=== PATIENT | female | born 1945 | race Caucasian/White ===

== ENCOUNTER 2020-08-24 00:36 | Emergency (ER) | payer OTHER ==
[~2020-08-24] VITALS: Ht 157.5 cm; Wt 104.3 kg
[~2020-08-24 00:36] MED LIST: ADULT LOW DOSE81 MG PO; AMLODIPINE BESYL5 MG PO; ASPIR 8181 MG PO; CELEBREX 200 M200 M1 PO; CHROMIUM PICO400 MCG PO; CLONAZEPAM0.125 MG PO; CLONIDINE0.1 PO; COUMADIN 5 MG TA5 M1 OR; CYCLOSET0.8 MG PO; DAILY GARLIC O400 MG PO; FISH OIL 1,0001 EAC5 PO; FISH OIL 500 M1 EACH PO; FOLIC ACID 1 MG1 MG PO; HUMALOG100 UNIT/1 SQ; LANTUS SC; LEXAPRO PO; LISINOPRIL20 MG PO; LOVENOX SC; MEDROL4 MG PO; MIRALAX255 GM PO; MOM PO; MULTIVITAMINS PO; NORCO 5-325 TA1 EACH PO; PLAVIX 75 MG TA75 MG PO; PRILOSEC PO; VITAMIN E400 UNIT PO; VYTORIN 10-401 EACH PO; WELCHOL 625 MG625 MG PO; XANAX 0.5 MG0.5 M1 PO; [UNRECOGNIZED DRUG - OTHER] SUBQ
[2020-08-24 01:10] LABS: URINE BILIRUBIN NEGATIVE (Negative); URINE BLOOD NEGATIVE (Negative); URINE CLARITY CLEAR; URINE COLOR YELLOW; URINE GLUCOSE-RANDOM NEGATIVE (Negative); URINE KETONES NEGATIVE (Negative); URINE LEUKOCYTES-REFLEX NEGATIVE (Negative); URINE NITRITE-REFLEX NEGATIVE (Negative); URINE PROTEIN NEGATIVE (Negative); URINE SPECIFIC GRAVITY 1.015 (1.005-1.030); URINE UROBILINOGEN 0.2 E.U./dl (0.2-1.0)
[2020-08-24 02:04] LABS: ABSOLUTE BASOPHILS 0.1 thou/uL (0.0-0.2); ABSOLUTE EOSINOPHILS 0.2 thou/uL (0.0-0.7); ABSOLUTE LYMPHOCYTES 2.7 thou/uL (0.8-5.3); ABSOLUTE MONOCYTES 0.5 thou/uL (0.0-1.2); ABSOLUTE NEUTROPHILS 4.2 thou/uL (1.6-8.1); BASOPHILS 0.8 %; EOSINOPHILS 2.4 %; HEMATOCRIT 36.6 % (37.0-47.0); HEMOGLOBIN 12.3 gm/dL (12.0-15.0); LYMPHOCYTES 35.5 %; MCH 28.5 pg (26.0-34.0); MCHC 33.6 g/dL (28.0-37.0); MCV 84.8 fL (80.0-100.0); MONOCYTES 6.5 %; MPV 8.7 fl. (7.2-11.1); NUCLEATED RBCS 0 /100WBC; PLATELET COUNT* 211 thou/uL (150-400); POLYS 54.8 %; RBC 4.32 mil/uL (4.20-5.00); RDW-CV 18.6 % (10.5-14.5); WBC 7.6 thou/uL (4.0-11.0)
[2020-08-24 02:08] LABS: CALCIUM 9.3 mg/dL (8.5-10.1); CREATININE 1.1 mg/dL (0.6-1.3); POTASSIUM 3.9 mmol/L (3.5-5.1)
[2020-08-24 02:10] LABS: PROTIME 10.8 Seconds (9.20-11.50)
[2020-08-24 02:19] LABS: ALBUMIN 3.5 g/dL (3.4-5.0); TOTAL BILIRUBIN 0.3 mg/dL (<0.1-1.0); TOTAL PROTEIN 8.1 g/dL (6.4-8.2)
[2020-08-24] MEDS ORDERED: KEFLEX500 M1 PO (04:51)
[2020-08-24 05:06] VITALS: BP 146/75
--- NOTE | 2020-08-24 09:06 | EKG ---
[place] [address] ELECTROCARDIOGRAM REPORT Name: JOHANNCODY ARNIE Room: [facility]#: [id number] Admission: 08/24/20 Attend Phys: Discharge: 08/24/20 Date of : 43 Date of Service: 08/24/20 0144 Report #: [id number] THIS REPORT FOR: //name// [facility] ED Test Date: 2020-08-24 Test Time: 01:44:14 Pat Name: CODY WILLS Department: Room: Gender: F [employer]: : 1945 Requested By: Aixa Brownlee Order Number: [id number] MD: Puneet Wu Measurements Intervals [place] Rate: 72 P: 52 MD: 145 QRS: 21 QRSD: 101 T: 92 QT: 416 QTc: 456 Interpretive Statements Sinus rhythm Ventricular trigeminy Abnormal R-wave progression, late transition Minimal ST depression, anterolateral leads Baseline wander in lead(s) II,III,aVF Compared to ECG 04/18/2016 19:26:23 ST (T wave) deviation now present T-wave abnormality no longer present Electronically Signed On 08-24-2020 9:06:10 BUSINESS ARCHITECT by Puneet Wu [email or web address] <ELECTRONICALLY SIGNED> By: Puneet Wu MD, FAC 08/24/20905 3 3 Puneet Wu MD, [facility] /EPI
== END 2020-08-24 05:06 | disposition home or self-care (01) ==
LOC: M.ERS 00:36
PROVIDERS: Emergency Medicine
DX: R60.0 Localized edema (principal); E11.9 Type 2 diabetes mellitus without complications; Z88.8 Allergy status to other drugs, medicaments and biological substances; Z79.899 Other long term (current) drug therapy; Z79.4 Long term (current) use of insulin

== ENCOUNTER 2021-03-20 22:06 | Inpatient (IN) | payer OTHER ==
[~2021-03-20] VITALS: Ht 152.4 cm; Wt 118.9 kg
--- NOTE | ~2021-03-20 | CON ---
[facility] [address] [place] [address] CONSULTATION Name: CODY WILLS Room: [address] [place].R.#: [id number] Admission: 03/21/21 Attend Phys: Dionte Pruett Discharge: Date of : 43 Report #: [id number] THIS REPORT FOR: cc: Kristi Aviles Maggie M. DO Khosla,Foreign Lomax MD ~ DATE OF CONSULTATION: 03/21/2021 HISTORY OF PRESENT ILLNESS: This is a 75-year-old female patient who was evaluated by me for stroke. I talked to the emergency room physician last night. I talked to the nurses earlier today. They tell him that the patient refused the Plavix and other medication. When I saw the patient, she denies that. She did have weakness on the right side, which appeared to have improved. However, it is still fluctuating. She did undergo an MRI, which confirmed that she had a stroke. She underwent a carotid Doppler, which was unremarkable. MRI demonstrated stenosis, but no abrupt cutoff to indicate embolus. All those studies were reviewed. The patient is stable. REVIEW OF SYSTEMS: A 14-point review of system was carried out. She does have a history of hypertension. She takes clonidine. She says she is a diabetic. SHE IS ALLERGIC TO CONTRAST. She does have some history of anxiety. She had femoral stent. This was a relevant 14-point review of system. PAST MEDICAL HISTORY: Positive for CVA in the past. FAMILY HISTORY: Unremarkable. SOCIAL HISTORY: She has smoked in the past. PHYSICAL EXAMINATION: She was alert and responsive. Her memory was somewhat poor. Cranial nerve examination was difficult to carry out especially visual field, but I do not see any hemianopsia, which is definite. She moves both sides. She is weak on the right side as compared to the left side. She says sensation is present, but it feels different on the right side. Her last blood pressure was 177/56. LABORATORY DATA: White count was 26.9. She has an abnormal lipid profile in the past. IMPRESSION: 1. Cerebrovascular accident. 2. Intracranial stenosis. RECOMMENDATION: 1. I discussed with the patient that [place] [address] CONSULTATION Name: JOHANNCODY Jones Room: [address]#: [id number] Admission: 03/21/21 Attend Phys: Dionte Pruett Discharge: Date of : 43 Report #: [id number] aspirin and Plavix. She is agreeable with that. She understands the potential side effect of it. I talked to the night nurse and I told her that she should make sure that the patient did not receive Plavix in the past and if she did not, then she can have 600 mg of Plavix. She is going to check to make sure she did not receive Plavix and then give her Plavix. 2. I will suggest keeping her blood pressure somewhat high because of intracranial stenosis. 3. She may need some more aggressive treatment of her lipid profile depending upon what lipid profile shows tomorrow. I discussed with her. I discussed the importance of controlling her vascular risk factors and the fact that these deficits can fluctuate. I agree she was not a candidate for tPA. There is no abrupt cutoff to look for any embolization that is basically a stenosis and more importantly, the patient has pretty mild deficits when I saw this patient, but this patient is very predisposed to have a large stroke and need to be monitored. More than 50 minutes of time was spent taking care of this patient today and majority was spent counseling and coordinating. By: 03 [id number] Leonard MD /nt
[~2021-03-20 22:06] MED LIST changes: +KEFLEX500 M1 PO
[2021-03-20 22:16] VITALS: BP 135/53
[2021-03-20] MEDS ORDERED: PRINIVIL20 M1 PO (22:33)
[2021-03-20] MEDS ORDERED: CLONIDINE HCL0.1 MG PO (22:33)
[2021-03-20] MEDS ORDERED: XANAX 0.5 MG0.5 MG PO (22:34)
[2021-03-20] MEDS ORDERED: BUMETANIDE0.5 MG PO (22:34)
[2021-03-20] MEDS ORDERED: LANTUS SUBQ (22:35)
[2021-03-20] MEDS ORDERED: NOVOLOG100 UNIT/M SUBQ (22:35)
[2021-03-20] MEDS ORDERED: LIDODERM1 EACH TOP (22:36)
[2021-03-20 22:47] LABS: ABSOLUTE BASOPHILS 0.1 thou/uL (0.0-0.2); ABSOLUTE EOSINOPHILS 0.1 thou/uL (0.0-0.7); ABSOLUTE LYMPHOCYTES 2.1 thou/uL (0.8-5.3); ABSOLUTE MONOCYTES 0.4 thou/uL (0.0-1.2); ABSOLUTE NEUTROPHILS 4.2 thou/uL (1.6-8.1); BASOPHILS 0.8 %; EOSINOPHILS 1.9 %; HEMATOCRIT 35.8 % (37.0-47.0); HEMOGLOBIN 12.3 gm/dL (12.0-15.0); LYMPHOCYTES 30.3 %; MCH 31.2 pg (26.0-34.0); MCHC 34.5 g/dL (28.0-37.0); MCV 90.3 fL (80.0-100.0); MONOCYTES 6.3 %; MPV 8.1 fl. (7.2-11.1); NUCLEATED RBCS 0 /100WBC; PLATELET COUNT* 229 thou/uL (150-400); POLYS 60.7 %; RBC 3.96 mil/uL (4.20-5.00); RDW-CV 13.7 % (10.5-14.5); WBC 6.9 thou/uL (4.0-11.0)
[2021-03-20 22:49] LABS: CALCIUM 9.6 mg/dL (8.5-10.1); CREATININE 1.3 mg/dL (0.6-1.3); POTASSIUM 4.4 mmol/L (3.5-5.1)
[2021-03-20 23:00] LABS: ALBUMIN 3.8 g/dL (3.4-5.0); MAGNESIUM 2.3 mg/dL (1.8-2.4); TOTAL BILIRUBIN 0.3 mg/dL (<0.1-1.0); TOTAL PROTEIN 8.2 g/dL (6.4-8.2)
[2021-03-20 23:12] LABS: URINE BILIRUBIN NEGATIVE (Negative); URINE BLOOD NEGATIVE (Negative); URINE CLARITY CLEAR; URINE COLOR YELLOW; URINE GLUCOSE-RANDOM NEGATIVE (Negative); URINE KETONES NEGATIVE (Negative); URINE LEUKOCYTES-REFLEX NEGATIVE (Negative); URINE NITRITE-REFLEX NEGATIVE (Negative); URINE PROTEIN NEGATIVE (Negative); URINE UROBILINOGEN 0.2 E.U./dl (0.2-1.0)
[2021-03-20 23:19] LABS: PROTIME 10.9 Seconds (9.20-11.50)
[2021-03-21 05:48] VITALS: BP 164/50
[2021-03-21 09:45] VITALS: BP 153/49
--- NOTE | 2021-03-21 09:47 | EKG ---
[place] [address] ELECTROCARDIOGRAM REPORT Name: CODY WILLS Room: [place] [address] ADM IN [facility]#: [id number] Admission: 03/21/21 Attend Phys: Mirza Ramirez Discharge: Date of : 43 Date of Service: 03/20/212214 Report #: [id number] THIS REPORT FOR: //name// [facility] ED Test Date: 2021-03-20 Test Time: 22:15:17 Pat Name: CODY WILLS Department: Room: [facility] Gender: F Service Desk Team Lead: [place] : 1945 Requested By: Aixa Brownlee Order Number: [id number] MD: Alfredo Rain Measurements Intervals [place] Rate: 69 P: 67 CA: 147 QRS: 19 QRSD: 101 T: 184 QT: 396 QTc: 425 Interpretive Statements Sinus rhythm Atrial premature complex Repol abnrm suggests ischemia, lateral leads Baseline wander in lead(s) II,III,aVR,aVL,aVF,V3 Compared to ECG 08/24/2020 01:44:14 Atrial premature complex(es) now present Ventricular premature complex(es) no longer present Electronically Signed On 03-21-2021 9:46:39 CDT by Alfredo Rain [email or web address] <ELECTRONICALLY SIGNED> By: Alfredo Rain MD, [facility] 03/21/2146 14 14 Alfredo Rain MD, [facility] /EPI
[2021-03-21 13:45] VITALS: BP 198/66
[2021-03-21 16:51] VITALS: BP 177/56
[2021-03-21 20:00] VITALS: BP 174/61
[2021-03-22 00:45] VITALS: BP 167/55
[2021-03-22 04:30] VITALS: BP 201/84
[2021-03-22 04:42] LABS: ALBUMIN 3.5 g/dL (3.4-5.0); ALKALINE PHOSPHATASE 144 U/L (46-116); ANION GAP 9 mmol/L (7-16); BUN 31 mg/dL (7-18); CALCIUM 9.2 mg/dL (8.5-10.1); CHLORIDE 104 mmol/L (98-107); CHOLESTEROL 268 mg/dL (<200); CO2 27 mmol/L (21-32); CREATININE 1.2 mg/dL (0.6-1.3); GLUCOSE 243 mg/dL (70-99); HDL CHOLESTEROL 38 mg/dL (>40); LDL CHOLESTEROL 156 mg/dL (<100); POTASSIUM 4.4 mmol/L (3.5-5.1); SGOT 16 U/L (15-37); SGPT 29 U/L (30-65); SODIUM 140 mmol/L (136-145); TC:HDL 7.1 Ratio (Not establshd); TOTAL BILIRUBIN 0.6 mg/dL (<0.1-1.0); TOTAL PROTEIN 7.6 g/dL (6.4-8.2); TRIGLYCERIDE 370 mg/dL (<150); VLDL 74 mg/dL (<40)
[2021-03-22 04:44] LABS: SERUM ASSESSMENT CLEAR
[2021-03-22 05:15] VITALS: BP 209/76
[2021-03-22 06:47] LABS: ABSOLUTE EOSINOPHILS 0.2 thou/uL (0.0-0.7); ABSOLUTE LYMPHOCYTES 2.6 thou/uL (0.8-5.3); ABSOLUTE MONOCYTES 0.4 thou/uL (0.0-1.2); ABSOLUTE NEUTROPHILS 4.1 thou/uL (1.6-8.1); BASOPHILS 0.6 %; EOSINOPHILS 2.3 %; HEMATOCRIT 36.1 % (37.0-47.0); HEMOGLOBIN 12.1 gm/dL (12.0-15.0); LYMPHOCYTES 35.3 %; MCH 30.8 pg (26.0-34.0); MCHC 33.7 g/dL (28.0-37.0); MCV 91.6 fL (80.0-100.0); MONOCYTES 6.2 %; MPV 8.3 fl. (7.2-11.1); NUCLEATED RBCS 0 /100WBC; PLATELET COUNT* 210 thou/uL (150-400); POLYS 55.6 %; RBC 3.94 mil/uL (4.20-5.00); RDW-CV 13.5 % (10.5-14.5); WBC 7.3 thou/uL (4.0-11.0)
[2021-03-22 12:00] VITALS: BP 160/43
[2021-03-22 16:16] VITALS: BP 156/51
[2021-03-22 20:00] VITALS: BP 160/65
[2021-03-23 00:25] VITALS: BP 153/57
[2021-03-23 04:35] VITALS: BP 141/38
[2021-03-23 07:09] LABS: GLYCOHEMOGLOBIN (HGB A1C) 8.5 % (4.8-5.6)
[2021-03-23 08:10] VITALS: BP 139/42
[2021-03-23 08:55] LABS: ABSOLUTE BASOPHILS 0.1 thou/uL (0.0-0.2); ABSOLUTE EOSINOPHILS 0.2 thou/uL (0.0-0.7); ABSOLUTE LYMPHOCYTES 2.5 thou/uL (0.8-5.3); ABSOLUTE MONOCYTES 0.4 thou/uL (0.0-1.2); ABSOLUTE NEUTROPHILS 3.3 thou/uL (1.6-8.1); BASOPHILS 0.8 %; HEMATOCRIT 33.5 % (37.0-47.0); HEMOGLOBIN 11.8 gm/dL (12.0-15.0); LYMPHOCYTES 38.9 %; MCH 31.7 pg (26.0-34.0); MCHC 35.1 g/dL (28.0-37.0); MCV 90.4 fL (80.0-100.0); MONOCYTES 6.3 %; NUCLEATED RBCS 0 /100WBC; PLATELET COUNT* 192 thou/uL (150-400); RBC 3.71 mil/uL (4.20-5.00); RDW-CV 13.7 % (10.5-14.5); WBC 6.4 thou/uL (4.0-11.0)
[2021-03-23 09:07] LABS: AMYLASE 34 U/L (25-115); LIPASE 100 U/L (73-393)
[2021-03-23 10:28] LABS: ALBUMIN 3.3 g/dL (3.4-5.0); CALCIUM 9.2 mg/dL (8.5-10.1); CREATININE 1.1 mg/dL (0.6-1.3); POTASSIUM 4.1 mmol/L (3.5-5.1); TOTAL BILIRUBIN 0.5 mg/dL (<0.1-1.0); TOTAL PROTEIN 7.3 g/dL (6.4-8.2)
[2021-03-23 12:00] VITALS: BP 152/83
[2021-03-23 20:00] VITALS: BP 155/59
[2021-03-24] VITALS: BP 101/35
[2021-03-24 04:00] VITALS: BP 141/36
[2021-03-24 07:25] VITALS: BP 105/42
[2021-03-24 12:00] VITALS: BP 124/41
[2021-03-24 16:00] VITALS: BP 162/60
[2021-03-25] VITALS: BP 112/85
[2021-03-25 04:00] VITALS: BP 150/37
[2021-03-25 08:00] VITALS: BP 188/66
[2021-03-25 12:01] VITALS: BP 173/56
[2021-03-25 17:36] VITALS: BP 185/64
[2021-03-25 20:00] VITALS: BP 178/64
[2021-03-26] VITALS: BP 183/48
[2021-03-26 04:21] VITALS: BP 180/53
[2021-03-26 04:37] LABS: HEMOGLOBIN 11.9 gm/dL (12.0-15.0); MCH 31.2 pg (26.0-34.0); MCHC 33.9 g/dL (28.0-37.0); MPV 8.5 fl. (7.2-11.1); RBC 3.81 mil/uL (4.20-5.00); RDW-CV 13.8 % (10.5-14.5); WBC 8.3 thou/uL (4.0-11.0)
[2021-03-26 05:13] LABS: ALBUMIN 3.3 g/dL (3.4-5.0); CREATININE 1.1 mg/dL (0.6-1.3); MAGNESIUM 2.3 mg/dL (1.8-2.4); POTASSIUM 3.4 mmol/L (3.5-5.1); TOTAL BILIRUBIN 0.5 mg/dL (<0.1-1.0); TOTAL PROTEIN 7.4 g/dL (6.4-8.2)
[2021-03-26 09:00] VITALS: BP 183/53
[2021-03-26 12:00] VITALS: BP 160/68
[2021-03-26 15:44] VITALS: BP 177/51
[2021-03-26 20:00] VITALS: BP 180/68
[2021-03-27] VITALS: BP 149/65; BP 150/65
[2021-03-27 04:00] VITALS: BP 175/62
[2021-03-27 12:00] VITALS: BP 185/66
[2021-03-27 16:07] VITALS: BP 160/64
[2021-03-27 20:00] VITALS: BP 187/86
[2021-03-28] VITALS: BP 173/68
[2021-03-28 04:00] VITALS: BP 169/61
[2021-03-28 08:00] VITALS: BP 178/63
[2021-03-28 12:00] VITALS: BP 183/50
[2021-03-28] MEDS ORDERED: GLUCOTROL5 MG PO (12:05)
[2021-03-28] MEDS ORDERED: PIOGLITAZONE15 MG PO (12:05)
[2021-03-28] MEDS ORDERED: BAYER CHEWABLE81 MG PO (12:05)
[2021-03-28] MEDS ORDERED: DOXYCYCLINE 10100 M2 PO (12:05)
[2021-03-28] MEDS ORDERED: NORVASC5 MG PO (12:05)
[2021-03-28] MEDS ORDERED: WELCHOL 625 MG625 M1 PO (12:05)
[2021-03-28] MEDS ORDERED: HUMALOG100 UNIT/1 SUBQ (12:05)
[2021-03-28] MEDS ORDERED: LIPITOR 40 MG T40 M1 PO (12:05)
[2021-03-28] MEDS ORDERED: QUINU5 PD PO (12:05)
[2021-03-28] MEDS ORDERED: GEMFIBROZIL 60600 M1 PO (12:05)
[2021-03-28] MEDS ORDERED: LANTUS SUBQ ×2 (12:05)
[2021-03-28] MEDS ORDERED: CLOPIDOGREL75 MG PO (12:05)
== END 2021-03-28 15:06 | DRG 64 ==
LOC: M.ERS 22:06 → M.TBA-ER 03-21 01:48 → M.2W 03-21 01:48
PROVIDERS: Emergency Medicine; Internal Medicine; ADMIT Internal Medicine; ATTEND Internal Medicine
PROC: 5A09557 Assistance with Respiratory Ventilation, Greater than 96 Consecutive Hours, Continuous Positive Airway Pressure (ICD-10-PCS; principal; 2021-03-21)
DX: I63.81 Other cerebral infarction due to occlusion or stenosis of small artery (principal); G93.41 Metabolic encephalopathy; G81.91 Hemiplegia, unspecified affecting right dominant side; Z68.43 Body mass index [BMI] 50.0-59.9, adult; L03.115 Cellulitis of right lower limb; Z20.822 Contact with and (suspected) exposure to COVID-19; I10 Essential (primary) hypertension; E11.51 Type 2 diabetes mellitus with diabetic peripheral angiopathy without gangrene; E66.01 Morbid (severe) obesity due to excess calories; E87.70 Fluid overload, unspecified; E78.1 Pure hyperglyceridemia; R47.1 Dysarthria and anarthria; D64.9 Anemia, unspecified; R53.81 Other malaise; R29.810 Facial weakness; E78.5 Hyperlipidemia, unspecified; G31.84 Mild cognitive impairment of uncertain or unknown etiology; R47.01 Aphasia; Z86.73 Personal history of transient ischemic attack (TIA), and cerebral infarction without residual deficits; Z95.820 Peripheral vascular angioplasty status with implants and grafts; Z79.899 Other long term (current) drug therapy; Z79.4 Long term (current) use of insulin; Z88.8 Allergy status to other drugs, medicaments and biological substances; Z91.041 Radiographic dye allergy status; Z87.891 Personal history of nicotine dependence; Z83.3 Family history of diabetes mellitus

== ENCOUNTER 2021-03-28 14:47 | Inpatient (IN) | payer OTHER ==
[~2021-03-28] VITALS: Ht 157.5 cm; Wt 112.0 kg
[~2021-03-28 14:47] MED LIST changes: +BAYER CHEWABLE81 MG PO; +BUMETANIDE0.5 MG PO; +CLONIDINE HCL0.1 MG PO; +CLOPIDOGREL75 MG PO; +DOXYCYCLINE 10100 M2 PO; +GEMFIBROZIL 60600 M1 PO; +GLUCOTROL5 MG PO; +HUMALOG100 UNIT/1 SUBQ; +LANTUS SUBQ; +LIDODERM1 EACH TOP; +LIPITOR 40 MG T40 M1 PO; +NORVASC5 MG PO; +NOVOLOG100 UNIT/M SUBQ; +PIOGLITAZONE15 MG PO; +PRINIVIL20 M1 PO; +QUINU5 PD PO; +WELCHOL 625 MG625 M1 PO; +XANAX 0.5 MG0.5 MG PO
[2021-03-28 19:00] VITALS: BP 198/73
[2021-03-29 04:33] LABS: HEMATOCRIT 33.9 % (37.0-47.0); HEMOGLOBIN 11.7 gm/dL (12.0-15.0); MCH 31.5 pg (26.0-34.0); MCHC 34.5 g/dL (28.0-37.0); MCV 91.4 fL (80.0-100.0); MPV 8.3 fl. (7.2-11.1); RBC 3.72 mil/uL (4.20-5.00); RDW-CV 13.7 % (10.5-14.5); WBC 7.1 thou/uL (4.0-11.0)
[2021-03-29 04:49] LABS: CALCIUM 9.3 mg/dL (8.5-10.1); POTASSIUM 3.8 mmol/L (3.5-5.1)
[2021-03-29 06:22] VITALS: BP 167/52
[2021-03-29 08:24] VITALS: BP 167/64
[2021-03-29 19:40] VITALS: BP 141/54
[2021-03-30 08:00] VITALS: BP 168/74
[2021-03-30 20:00] VITALS: BP 172/64
[2021-03-31 07:39] VITALS: BP 156/54
[2021-03-31 19:00] VITALS: BP 136/55
[2021-04-01 07:45] VITALS: BP 164/70
[2021-04-01 20:00] VITALS: BP 176/59
[2021-04-02 07:26] VITALS: BP 162/52
[2021-04-02 19:00] VITALS: BP 114/60
[2021-04-03 09:11] VITALS: BP 144/61
[2021-04-03 19:00] VITALS: BP 166/52
[2021-04-04 05:19] LABS: HEMATOCRIT 31.4 % (37.0-47.0); HEMOGLOBIN 11.1 gm/dL (12.0-15.0); MCH 31.8 pg (26.0-34.0); MCHC 35.2 g/dL (28.0-37.0); MCV 90.3 fL (80.0-100.0); MPV 8.4 fl. (7.2-11.1); RBC 3.48 mil/uL (4.20-5.00); RDW-CV 13.8 % (10.5-14.5); WBC 6.5 thou/uL (4.0-11.0)
[2021-04-04 05:32] LABS: CALCIUM 9.3 mg/dL (8.5-10.1); CREATININE 0.9 mg/dL (0.6-1.3); POTASSIUM 3.9 mmol/L (3.5-5.1)
[2021-04-04 07:30] VITALS: BP 159/60
[2021-04-04 19:00] VITALS: BP 165/59
[2021-04-05 07:30] VITALS: BP 165/54
[2021-04-05 20:11] VITALS: BP 175/51
[2021-04-06 07:20] VITALS: BP 153/59
[2021-04-06 19:45] VITALS: BP 157/45
[2021-04-07 08:25] VITALS: BP 181/75
[2021-04-07 19:15] VITALS: BP 141/37
[2021-04-08 08:21] VITALS: BP 140/41
[2021-04-08 20:00] VITALS: BP 142/98
[2021-04-09 07:30] VITALS: BP 156/44
[2021-04-09 19:00] VITALS: BP 170/55
[2021-04-10 07:44] VITALS: BP 164/70
[2021-04-10 19:00] VITALS: BP 159/43
[2021-04-11 05:26] LABS: HEMATOCRIT 27.8 % (37.0-47.0); HEMOGLOBIN 9.7 gm/dL (12.0-15.0); MCH 31.8 pg (26.0-34.0); MCHC 34.8 g/dL (28.0-37.0); MCV 91.3 fL (80.0-100.0); MPV 8.7 fl. (7.2-11.1); RBC 3.04 mil/uL (4.20-5.00); RDW-CV 13.5 % (10.5-14.5); WBC 5.5 thou/uL (4.0-11.0)
[2021-04-11 07:47] VITALS: BP 156/55
[2021-04-11 19:40] VITALS: BP 159/52
[2021-04-12 09:25] VITALS: BP 166/57
[2021-04-12 19:50] VITALS: BP 156/51
[2021-04-13 08:00] VITALS: BP 147/42
[2021-04-13 20:00] VITALS: BP 155/57
[2021-04-14 07:40] VITALS: BP 162/44
[2021-04-14 20:00] VITALS: BP 163/54
[2021-04-15 07:46] VITALS: BP 147/60
[2021-04-15 19:36] VITALS: BP 154/43
[2021-04-16 07:30] VITALS: BP 160/57
[2021-04-16 19:23] VITALS: BP 142/46
[2021-04-17 07:22] VITALS: BP 176/55
[2021-04-17 19:25] VITALS: BP 153/46
[2021-04-18 05:28] LABS: HEMATOCRIT 27.7 % (37.0-47.0); HEMOGLOBIN 9.7 gm/dL (12.0-15.0); MCH 31.7 pg (26.0-34.0); MCHC 34.9 g/dL (28.0-37.0); MCV 90.8 fL (80.0-100.0); MPV 8.7 fl. (7.2-11.1); RBC 3.05 mil/uL (4.20-5.00); RDW-CV 13.7 % (10.5-14.5); WBC 5.8 thou/uL (4.0-11.0)
[2021-04-18 05:53] LABS: CALCIUM 9.2 mg/dL (8.5-10.1); CREATININE 0.9 mg/dL (0.6-1.3); POTASSIUM 4.3 mmol/L (3.5-5.1)
[2021-04-18 08:00] VITALS: BP 146/78
[2021-04-18 20:00] VITALS: BP 116/76
[2021-04-19 08:00] VITALS: BP 148/66
[2021-04-19 19:43] VITALS: BP 144/53
[2021-04-20 07:40] VITALS: BP 105/51
[2021-04-20 22:00] VITALS: BP 151/47
[2021-04-21 08:07] VITALS: BP 160/51
[2021-04-21 09:49] VITALS: BP 160/51
[2021-04-21 20:00] VITALS: BP 148/36; BP 149/49
[2021-04-22 09:13] VITALS: BP 158/53
[2021-04-22 19:57] VITALS: BP 154/51
[2021-04-23 07:30] VITALS: BP 163/50
[2021-04-23 19:00] VITALS: BP 101/41
[2021-04-24 08:00] VITALS: BP 175/52
[2021-04-24 09:54] LABS: URINE BILIRUBIN NEGATIVE (Negative); URINE BLOOD 3+ (Negative); URINE CLARITY SL CLOUDY; URINE COLOR YELLOW; URINE GLUCOSE-RANDOM NEGATIVE (Negative); URINE KETONES NEGATIVE (Negative); URINE NITRITE-REFLEX NEGATIVE (Negative); URINE PROTEIN 3+ (Negative); URINE SPECIFIC GRAVITY >= 1.030 (1.005-1.030); URINE UROBILINOGEN 0.2 E.U./dl (0.2-1.0)
[2021-04-24 09:57] LABS: URINE LEUKOCYTES-REFLEX 3+ (Negative)
[2021-04-24 10:02] LABS: CASTS None Seen /LPF (None Seen); CRYSTALS None Seen /LPF (None Seen); MUCUS 0-3 Light strn/LPF (None Seen); SQUAMOUS 4-10 Moderate /LPF (0-3); URINE RBC 3-10 Few /HPF (0-2)
[2021-04-24 19:00] VITALS: BP 115/46
[2021-04-25 07:13] VITALS: BP 163/58
[2021-04-25 07:30] LABS: HEMATOCRIT 27.3 % (37.0-47.0); HEMOGLOBIN 9.7 gm/dL (12.0-15.0); MCH 32.2 pg (26.0-34.0); MCHC 35.4 g/dL (28.0-37.0); MCV 91.1 fL (80.0-100.0); MPV 8.3 fl. (7.2-11.1); RDW-CV 13.3 % (10.5-14.5); WBC 6.2 thou/uL (4.0-11.0)
[2021-04-25 07:41] LABS: ANION GAP < 0 mmol/L (7-16); BUN 20 mg/dL (7-18); CALCIUM 9.2 mg/dL (8.5-10.1); CHLORIDE 107 mmol/L (98-107); CO2 27 mmol/L (21-32); GLUCOSE 83 mg/dL (70-99); SODIUM 129 mmol/L (136-145)
[2021-04-25 11:36] LABS: CALCIUM 9.4 mg/dL (8.5-10.1); CREATININE 1.1 mg/dL (0.6-1.3); POTASSIUM 4.3 mmol/L (3.5-5.1)
[2021-04-25 19:30] VITALS: BP 137/37
[2021-04-26 09:33] VITALS: BP 142/48
[2021-04-26 19:45] VITALS: BP 137/50
[2021-04-27 07:57] VITALS: BP 174/63
[2021-04-27 19:35] VITALS: BP 141/45
[2021-04-28 08:00] VITALS: BP 149/41
[2021-04-28 19:00] VITALS: BP 135/45
[2021-04-29 07:30] VITALS: BP 159/70
[2021-04-29 11:03] LABS: ABSOLUTE EOSINOPHILS 0.1 thou/uL (0.0-0.7); ABSOLUTE LYMPHOCYTES 1.3 thou/uL (0.8-5.3); ABSOLUTE MONOCYTES 0.3 thou/uL (0.0-1.2); ABSOLUTE NEUTROPHILS 2.7 thou/uL (1.6-8.1); HEMATOCRIT 28.8 % (37.0-47.0); HEMOGLOBIN 10.1 gm/dL (12.0-15.0); MCHC 34.9 g/dL (28.0-37.0); WBC 4.4 thou/uL (4.0-11.0)
[2021-04-29 11:05] LABS: BASOPHILS 0.7 %; LYMPHOCYTES 29.1 %; MCV 91.8 fL (80.0-100.0); MONOCYTES 6.2 %; MPV 8.5 fl. (7.2-11.1); NUCLEATED RBCS 0 /100WBC; PLATELET COUNT* 223 thou/uL (150-400); RBC 3.14 mil/uL (4.20-5.00); RDW-CV 13.8 % (10.5-14.5)
[2021-04-29 20:10] VITALS: BP 168/51
[2021-04-30 07:30] VITALS: BP 162/59
[2021-04-30 19:00] VITALS: BP 156/51
[2021-05-01 07:40] VITALS: BP 132/52
[2021-05-01 19:00] VITALS: BP 145/50
[2021-05-02 04:39] LABS: CALCIUM 8.7 mg/dL (8.5-10.1); POTASSIUM 4.1 mmol/L (3.5-5.1)
[2021-05-02 04:43] LABS: HEMATOCRIT 26.7 % (37.0-47.0); HEMOGLOBIN 9.3 gm/dL (12.0-15.0); MCH 31.9 pg (26.0-34.0); MCHC 34.8 g/dL (28.0-37.0); MCV 91.7 fL (80.0-100.0); MPV 8.3 fl. (7.2-11.1); RBC 2.91 mil/uL (4.20-5.00); RDW-CV 13.7 % (10.5-14.5); WBC 5.4 thou/uL (4.0-11.0)
[2021-05-02 07:40] VITALS: BP 148/49
[2021-05-02 20:00] VITALS: BP 150/46
[2021-05-03 09:08] VITALS: BP 143/60
[2021-05-03 20:00] VITALS: BP 125/53
[2021-05-04 07:54] VITALS: BP 145/53
[2021-05-04 12:43] LABS: URINE BILIRUBIN NEGATIVE (Negative); URINE BLOOD NEGATIVE (Negative); URINE CLARITY CLEAR; URINE COLOR YELLOW; URINE GLUCOSE-RANDOM NEGATIVE (Negative); URINE KETONES NEGATIVE (Negative); URINE LEUKOCYTES-REFLEX NEGATIVE (Negative); URINE NITRITE-REFLEX NEGATIVE (Negative); URINE PROTEIN NEGATIVE (Negative); URINE SPECIFIC GRAVITY 1.025 (1.005-1.030); URINE UROBILINOGEN 0.2 E.U./dl (0.2-1.0)
[2021-05-04 19:57] VITALS: BP 141/42
[2021-05-05 07:50] VITALS: BP 147/53
[2021-05-05 19:30] VITALS: BP 147/47
[2021-05-06 07:00] VITALS: BP 129/41
[2021-05-06 19:30] VITALS: BP 149/39
[2021-05-07 07:30] VITALS: BP 134/44
[2021-05-07 19:00] VITALS: BP 158/45
[2021-05-08 07:34] VITALS: BP 160/51
[2021-05-08 13:04] LABS: URINE BILIRUBIN NEGATIVE (Negative); URINE BLOOD 3+ (Negative); URINE CLARITY CLEAR; URINE COLOR YELLOW; URINE GLUCOSE-RANDOM NEGATIVE (Negative); URINE KETONES NEGATIVE (Negative); URINE PROTEIN 2+ (Negative); URINE SPECIFIC GRAVITY >= 1.030 (1.005-1.030); URINE UROBILINOGEN 0.2 E.U./dl (0.2-1.0)
[2021-05-08 13:05] LABS: URINE LEUKOCYTES-REFLEX 2+ (Negative); URINE NITRITE-REFLEX POSITIVE (Negative)
[2021-05-08 13:13] LABS: URINE WBC-REFLEX >25 Many /HPF (0-5)
[2021-05-08 13:14] LABS: CASTS None Seen /LPF (None Seen); SQUAMOUS NONE SEEN /LPF (0-3)
[2021-05-08 13:15] LABS: CRYSTALS None Seen /LPF (None Seen)
[2021-05-08 19:00] VITALS: BP 130/67
[2021-05-09 05:06] LABS: HEMATOCRIT 26.8 % (37.0-47.0); HEMOGLOBIN 9.2 gm/dL (12.0-15.0); MCH 31.6 pg (26.0-34.0); MCHC 34.3 g/dL (28.0-37.0); MCV 92.4 fL (80.0-100.0); MPV 8.4 fl. (7.2-11.1); RBC 2.9 mil/uL (4.20-5.00); RDW-CV 13.7 % (10.5-14.5); WBC 7.6 thou/uL (4.0-11.0)
[2021-05-09 05:21] LABS: CALCIUM 8.9 mg/dL (8.5-10.1); POTASSIUM 3.7 mmol/L (3.5-5.1)
[2021-05-09 07:34] VITALS: BP 150/47
[2021-05-09 20:00] VITALS: BP 138/91
[2021-05-10 07:00] VITALS: BP 145/54
[2021-05-10 08:00] VITALS: BP 145/54
[2021-05-10 19:47] VITALS: BP 145/40
[2021-05-11 08:02] VITALS: BP 147/78
[2021-05-11 14:38] LABS: HEMATOCRIT 28.3 % (37.0-47.0); HEMOGLOBIN 9.7 gm/dL (12.0-15.0); MCH 31.9 pg (26.0-34.0); MCHC 34.4 g/dL (28.0-37.0); MCV 92.7 fL (80.0-100.0); MPV 8.6 fl. (7.2-11.1); RBC 3.06 mil/uL (4.20-5.00); WBC 5.1 thou/uL (4.0-11.0)
[2021-05-11 16:00] VITALS: BP 144/79
[2021-05-11 20:42] VITALS: BP 134/42
[2021-05-12 08:00] VITALS: BP 157/58
[2021-05-12 19:00] VITALS: BP 148/49
[2021-05-13 07:21] VITALS: BP 150/58
[2021-05-13 19:19] VITALS: BP 143/55
[2021-05-14 07:35] VITALS: BP 139/48
[2021-05-14 12:42] VITALS: BP 139/48
[2021-05-14 14:53] VITALS: BP 139/48
== END 2021-05-14 11:54 | disposition home or self-care (01) | DRG 64 ==
LOC: M.REH 14:47
PROVIDERS: Internal Medicine; ADMIT Physical Medicine & Rehabilitation; ATTEND Physical Medicine & Rehabilitation
DX: I63.9 Cerebral infarction, unspecified (principal); G93.41 Metabolic encephalopathy; G81.91 Hemiplegia, unspecified affecting right dominant side; L03.115 Cellulitis of right lower limb; N39.0 Urinary tract infection, site not specified; Z68.43 Body mass index [BMI] 50.0-59.9, adult; R47.1 Dysarthria and anarthria; E66.01 Morbid (severe) obesity due to excess calories; E87.6 Hypokalemia; E78.1 Pure hyperglyceridemia; D64.9 Anemia, unspecified; E11.51 Type 2 diabetes mellitus with diabetic peripheral angiopathy without gangrene; I10 Essential (primary) hypertension; B96.89 Other specified bacterial agents as the cause of diseases classified elsewhere; Z88.8 Allergy status to other drugs, medicaments and biological substances; Z79.82 Long term (current) use of aspirin; Z79.899 Other long term (current) drug therapy; Z91.041 Radiographic dye allergy status